=== PATIENT | female | born 1955 | race Caucasian/White ===

== ENCOUNTER 2016-10-04 14:04 | Emergency (ER) | payer MEDICAID ==
[2016-10-04 15:02] LABS: Hematocrit 44.6 % (30.3-42.9); Hemoglobin 14.7 gm/dl (10.1-14.3); Mean Corpuscular HGB Conc 33 % (30-34); Mean Corpuscular Hemoglobin 28 pg (28-32); Mean Corpuscular Volume 84 fl (79-97); Platelet Count 347 K/mm3 (140-440); Red Cell Distribution Width 13.5 % (13.2-15.2); White Blood Count 13.5 K/mm3 (4.5-11.0)
[2016-10-04 15:16] LABS: Alanine Aminotransferase 17 units/L (7-56); Albumin 4.1 g/dL (3.9-5); Albumin/Globulin Ratio 1.1 %; Alkaline Phosphatase 77 units/L (35-129); Anion Gap 18 mmol/L; Bilirubin,Total 0.5 mg/dL (0.1-1.2); Blood Urea Nitrogen 12 mg/dL (7-17); Calcium 8.9 mg/dL (8.4-10.2); Carbon Dioxide 23 mmol/L (22-30); Chloride 93.3 mmol/L (98-107); Glucose 333 mg/dL (65-100); Lipase 40 units/L (13-60); Potassium 4.3 mmol/L (3.6-5.0); Sodium 130 mmol/L (137-145); Total Protein 7.9 g/dL (6.3-8.2)
[2016-10-04 15:20] LABS: Bilirubin,Urine NEG (Negative); Blood,Urine SM (Negative); Ketones,Urine 20 mg/dL (Negative); Leukocyte Esterase,Urine NEG (Negative); Mucus,Urine FEW /HPF; Nitrite,Urine NEG (Negative); Protein,Urine <15 mg/dL mg/dL (Negative); Urobilinogen,Urine < 2.0 mg/dL (<2.0); WBC,Urine < 1.0 /HPF (0.0-6.0)
[2016-10-04 15:38] LABS: Basophils % (Manual) 0 % (0.0-1.8); Blastocytes % (Manual) 0 %; Eosinophils % (Manual) 0 % (0.0-4.3)
[2016-10-04 15:42] LABS: Anisocytosis 1+; Target Cells Few
[2016-10-04 15:43] LABS: Diff Status Complete
[2016-10-04] MEDS ORDERED: ZOFRAN IV ONE (17:09)
[2016-10-04] MEDS ORDERED: DILAUDID IV ONE (17:09)
[2016-10-04] MEDS ORDERED: NACL 0.9% 1000 ML 1,000 ML IV ONE (17:09)
[2016-10-04] MEDS ORDERED: PEPCID IV ONE (17:09)
--- NOTE | 2016-10-04 17:10 | Emergency Department Report ---
ED General Adult HPI - General Chief complaint: Abdominal Pain Stated complaint: HIGH BLOOD SUGAR Time Seen by Provider: 10/04/16 17:01 Source: patient, RN notes reviewed Mode of arrival: Stretcher Limitations: No Limitations - History of Present Illness Initial comments: This is a 60-year-old female, she is previously unknown to me. she cannot recall the name of her primary care doctor. She has a past medical history of chronic pancreatitis, diabetes, hypertension. Surgical history includes appendectomy, partial hysterectomy. Last diagnosis of pancreatitis 2 years ago. Presents to the ER complaining of abdominal pain. Abdominal pain is epigastric and radiates down to the bilateral lower quadrants and back. It is sharp. Increases with palpation. Decreases with rest. Positive nausea and vomiting. No chest pain. No shortness of breath. No irritative or obstructive urinary symptoms. Last flare of pancreatitis was 2 years ago, reports this feels similar to prior episode of pancreatitis. -: Gradual Location: abdomen Radiation: back, abdomen, flank Quality: burning, stabbing, aching Consistency: constant Improves with: medication, rest Worsens with: movement Associated Symptoms: loss of appetite, malaise, nausea/vomiting, weakness. denies: confusion, chest pain - Related Data Previous Rx's Medication Instructions Recorded Last Taken Type Dicyclomine [Bentyl] 10 mg PO QID PRN #20 capsule 10/04/16 Unknown Rx Ondansetron [Zofran Odt] 4 mg PO QID PRN #20 tab.rapdis 10/04/16 Unknown Rx Allergies Allergy/AdvReac Type Severity Reaction Status Date / Time No Known Allergies Allergy Unverified 10/04/16 14:18 ED Review of Systems ROS: Stated complaint: HIGH BLOOD SUGAR Other details as noted in HPI Constitutional: denies: fever Eyes: denies: vision change ENT: denies: epistaxis Cardiovascular: denies: chest pain Gastrointestinal: abdominal pain Genitourinary: denies: dysuria Musculoskeletal: back pain Skin: denies: lesions Neurological: weakness Psychiatric: anxiety ED Past Medical Hx - Past Medical History Hx Hypertension: Yes Hx Diabetes: Yes Additional medical history: pancreatitis - Surgical History Hx Appendectomy: Yes Additional Surgical History: hysterectomy,hep C - Social History Smoking Status: Current Every Day Smoker Substance Use Type: None - Medications Home Medications: Home Medications Medication Instructions Recorded Confirmed Last Taken Type Dicyclomine [Bentyl] 10 mg PO QID PRN #20 capsule 10/04/16 Unknown Rx Ondansetron [Zofran Odt] 4 mg PO QID PRN #20 tab.rapdis 10/04/16 Unknown Rx ED Physical Exam - General Limitations: No Limitations General appearance: alert, in no apparent distress - Head Head exam: Present: atraumatic, normocephalic - Eye Eye exam: Present: normal appearance, EOMI. Absent: nystagmus - ENT ENT exam: Present: normal exam, normal orophraynx, mucous membranes moist, normal external ear exam - Neck Neck exam: Present: normal inspection, full ROM. Absent: tenderness, meningismus - Respiratory Respiratory exam: Present: normal lung sounds bilaterally. Absent: respiratory distress, wheezes, rales, rhonchi, stridor, decreased breath sounds - Cardiovascular Cardiovascular Exam: Present: regular rate, normal rhythm, normal heart sounds. Absent: bradycardia, tachycardia, irregular rhythm, systolic murmur, diastolic murmur, rubs, gallop - GI/Abdominal GI/Abdominal exam: Present: soft, tenderness, normal bowel sounds. Absent: distended, guarding, rebound, rigid, pulsatile mass - Extremities Exam Extremities exam: Present: normal inspection, full ROM, normal capillary refill. Absent: tenderness, pedal edema, joint swelling, calf tenderness - Back Exam Back exam: Present: normal inspection, full ROM. Absent: tenderness, CVA tenderness (R), CVA tenderness (L), muscle spasm, paraspinal tenderness, vertebral tenderness - Neurological Exam Neurological exam: Present: alert, oriented X3, other (Extraocular movements intact. Tongue midline. No facial droop. Facial sensation intact to light touch in the V1, V2, V3 distribution bilaterally. 5 and 5 strength in 4 extremities.. Sensation is intact to light touch in 4 extremities.). Absent: motor sensory deficit - Psychiatric Psychiatric exam: Present: anxious - Skin Skin exam: Present: warm, dry, intact, normal color. Absent: rash ED Course Vital Signs 10/04/16 10/04/16 10/04/16 14:13 16:35 16:40 Temperature 98.3 F Pulse Rate 81 64 63 Respiratory 18 18 12 Rate Blood Pressure 153/81 Blood Pressure [Left] O2 Sat by Pulse 100 Oximetry 10/04/16 10/04/16 10/04/16 16:50 17:00 17:10 Temperature Pulse Rate 66 66 65 Respiratory 17 20 21 Rate Blood Pressure 153/77 156/75 156/75 Blood Pressure [Left] O2 Sat by Pulse Oximetry 10/04/16 10/04/16 10/04/16 17:20 17:30 17:40 Temperature Pulse Rate 67 65 68 Respiratory 19 14 10 L Rate Blood Pressure 150/72 130/72 130/72 Blood Pressure [Left] O2 Sat by Pulse Oximetry 10/04/16 10/04/16 10/04/16 17:50 18:00 18:10 Temperature Pulse Rate 70 64 70 Respiratory 11 L 11 L 16 Rate Blood Pressure 126/71 123/56 123/56 Blood Pressure [Left] O2 Sat by Pulse Oximetry 10/04/16 10/04/16 19:27 19:29 Temperature 97.9 F Pulse Rate 72 Respiratory 16 Rate Blood Pressure Blood Pressure 130/62 [Left] O2 Sat by Pulse 100 100 Oximetry - Reevaluation(s) Reevaluation #1: 10/04/16 18:06 Differential diagnosis: Acute on chronic pancreatitis, diabetic gastroparesis, cyclic vomiting syndrome, diverticulitis, bowel obstruction Assessment and plan: 60-year-old female with diffuse abdominal pain and tenderness. She is afebrile with reassuring vital signs with the exception of slightly elevated blood pressure. Laboratory studies not consistent with diabetic ketoacidosis, she will be treated symptomatically with pain medication , nausea medication and IV fluids. CT scan abdomen and pelvis with IV contrast is ordered. The risks, benefits, alternatives were discussed with the patient, who gave written and verbal consent for CT scan. She reports she has received CT scan in the past with IV contrast without complication difficulty. I doubt acute coronary syndrome, her EKG is morphologically normal without prior for comparison. If she is discharged, she can follow up with an outpatient primary care doctor for this. Reevaluation #2: 10/04/16 18:54 Fingerstick 252. Insulin held. feels improved. Tolerating liquid feeds Reevaluation #3: 10/04/16 19:16 CT scan demonstrates no acute disease. Incidental findings are noted. Patient is counseled about these incidental findings. She will be discharged with nonnarcotic pain medication, nausea medication, instructions to follow up with outpatient primary care. Return precautions are extensively reviewed. ED Medical Decision Making - Lab Data Result diagrams: 10/04/16 14:40 10/04/16 14:40 Vital Signs 10/04/16 10/04/16 14:13 16:35 Temperature 98.3 F Pulse Rate 81 64 Respiratory 18 18 Rate Blood Pressure 153/81 O2 Sat by Pulse 100 Oximetry Lab Results 10/04/16 10/04/16 10/04/16 Range/Units 14:13 14:40 14:40 WBC 13.5 H (4.5-11.0) K/mm3 RBC 5.30 H (3.65-5.03) M/mm3 Hgb 14.7 H (10.1-14.3) gm/dl Hct 44.6 H (30.3-42.9) % MCV 84 (79-97) fl MCH 28 (28-32) pg MCHC 33 (30-34) % RDW 13.5 (13.2-15.2) % Plt Count 347 (140-440) K/mm3 Lymph # Maintenance Electrician Add Manual Diff Complete Total Counted 100 Seg Neuts % (Manual) 53.0 (40.0-70.0) % Band Neutrophils % 0 % Lymphocytes % (Manual) 45.0 H (13.4-35.0) % Reactive Lymphs % (Man) 0 % Monocytes % (Manual) 2.0 (0.0-7.3) % Eosinophils % (Manual) 0 (0.0-4.3) % Basophils % (Manual) 0 (0.0-1.8) % Metamyelocytes % 0 % Myelocytes % 0 % Promyelocytes % 0 % Blast Cells % 0 % Nucleated RBC % Not Reportable Seg Neutrophils # Man 7.2 (1.8-7.7) K/mm3 Band Neutrophils # 0.0 K/mm3 Lymphocytes # (Manual) 6.1 H (1.2-5.4) K/mm3 Abs React Lymphs (Man) 0.0 K/mm3 Monocytes # (Manual) 0.3 (0.0-0.8) K/mm3 Eosinophils # (Manual) 0.0 (0.0-0.4) K/mm3 Basophils # (Manual) 0.0 (0.0-0.1) K/mm3 Metamyelocytes # 0.0 K/mm3 Myelocytes # 0.0 K/mm3 Promyelocytes # 0.0 K/mm3 Blast Cells # 0.0 K/mm3 WBC Morphology Not Reportable Hypersegmented Neuts Not Reportable Hyposegmented Neuts Not Reportable Hypogranular Neuts Not Reportable Smudge Cells Not Reportable Toxic Granulation Not Reportable Toxic Vacuolation Not Reportable Dohle Bodies Not Reportable Pelger-Huet Anomaly Not Reportable Symone Rods Not Reportable Platelet Estimate Appears normal Clumped Platelets Not Reportable Plt Clumps, EDTA Not Reportable Large Platelets Not Reportable Giant Platelets Not Reportable Platelet Satelliting Not Reportable Plt Morphology Comment Not Reportable RBC Morphology Not Reportable Dimorphic RBCs Not Reportable Polychromasia Not Reportable Hypochromasia Not Reportable Poikilocytosis Not Reportable Anisocytosis 1+ Microcytosis Not Reportable Macrocytosis Not Reportable Spherocytes Not Reportable Pappenheimer Bodies Not Reportable Sickle Cells Not Reportable Target Cells Few Tear Drop Cells Not Reportable Ovalocytes Not Reportable Helmet Cells Not Reportable Eduardo-[place] Bodies Not Reportable Hurricane Rings Not Reportable [place] Cells Not Reportable Bite Cells Not Reportable Crenated Cell Not Reportable Elliptocytes Not Reportable Acanthocytes (Spur) Not Reportable Rouleaux Not Reportable Hemoglobin C Crystals Not Reportable Schistocytes Not Reportable Malaria parasites Not Reportable Dinesh Bodies Not Reportable Hem Pathologist Commnt No VBG pH (7.320-7.420) Sodium 130 L (137-145) mmol/L Potassium 4.3 (3.6-5.0) mmol/L Chloride 93.3 L (98-107) mmol/L Carbon Dioxide 23 (22-30) mmol/L Anion Gap 18 mmol/L BUN 12 (7-17) mg/dL Creatinine 0.5 L (0.7-1.2) mg/dL Estimated GFR > 60 ml/min BUN/Creatinine Ratio 24.00 % Glucose 333 H (65-100) mg/dL POC Glucose 308 H (70-105) Lactic Acid (0.7-2.0) mmol/L Calcium 8.9 (8.4-10.2) mg/dL Total Bilirubin 0.5 (0.1-1.2) mg/dL AST 11 (5-40) units/L ALT 17 (7-56) units/L Alkaline Phosphatase 77 (35-129) units/L Total Protein 7.9 (6.3-8.2) g/dL Albumin 4.1 (3.9-5) g/dL Albumin/Globulin Ratio 1.1 % Lipase 40 (13-60) units/L Urine Color (Yellow) Urine Turbidity (Clear) Urine pH (5.0-7.0) Ur Specific [place] (1.003-1.030) Urine Protein (Negative) mg/dL Urine Glucose (UA) (Negative) mg/dL Urine Ketones (Negative) mg/dL Urine Blood (Negative) Urine Nitrite (Negative) Urine Bilirubin (Negative) Urine Urobilinogen (<2.0) mg/dL Ur Leukocyte Esterase (Negative) Urine WBC (Auto) (0.0-6.0) /HPF Urine RBC (Auto) (0.0-6.0) /HPF U Epithel Cells (Auto) (0-13.0) /HPF Urine Mucus /HPF 10/04/16 10/04/16 10/04/16 Range/Units 14:40 14:40 15:06 WBC (4.5-11.0) K/mm3 RBC (3.65-5.03) M/mm3 Hgb (10.1-14.3) gm/dl Hct (30.3-42.9) % MCV (79-97) fl MCH (28-32) pg MCHC (30-34) % RDW (13.2-15.2) % Plt Count (140-440) K/mm3 Lymph # Add Manual Diff Total Counted Seg Neuts % (Manual) (40.0-70.0) % Band Neutrophils % % Lymphocytes % (Manual) (13.4-35.0) % Reactive Lymphs % (Man) % Monocytes % (Manual) (0.0-7.3) % Eosinophils % (Manual) (0.0-4.3) % Basophils % (Manual) (0.0-1.8) % Metamyelocytes % % Myelocytes % % Promyelocytes % % Blast Cells % % Nucleated RBC % Seg Neutrophils # Man (1.8-7.7) K/mm3 Band Neutrophils # K/mm3 Lymphocytes # (Manual) (1.2-5.4) K/mm3 Abs React Lymphs (Man) K/mm3 Monocytes # (Manual) (0.0-0.8) K/mm3 Eosinophils # (Manual) (0.0-0.4) K/mm3 Basophils # (Manual) (0.0-0.1) K/mm3 Metamyelocytes # K/mm3 Myelocytes # K/mm3 Promyelocytes # K/mm3 Blast Cells # K/mm3 WBC Morphology Hypersegmented Neuts Hyposegmented Neuts Hypogranular Neuts Smudge Cells Toxic Granulation Toxic Vacuolation Dohle Bodies Pelger-Huet Anomaly Symone Rods Platelet Estimate Clumped Platelets Plt Clumps, EDTA Large Platelets Giant Platelets Platelet Satelliting Plt Morphology Comment RBC Morphology Dimorphic RBCs Polychromasia Hypochromasia Poikilocytosis Anisocytosis Microcytosis Macrocytosis Spherocytes Pappenheimer Bodies Sickle Cells Target Cells Tear Drop Cells Ovalocytes Helmet Cells Eduardo-[place] Bodies Hurricane Rings Deja Cells Bite Cells Crenated Cell Elliptocytes Acanthocytes (Spur) Rouleaux Hemoglobin C Crystals Schistocytes Malaria parasites Dinesh Bodies Hem Pathologist Commnt VBG pH 7.378 (7.320-7.420) Sodium (137-145) mmol/L Potassium (3.6-5.0) mmol/L Chloride (98-107) mmol/L Carbon Dioxide (22-30) mmol/L Anion Gap mmol/L BUN (7-17) mg/dL Creatinine (0.7-1.2) mg/dL Estimated GFR ml/min BUN/Creatinine Ratio % Glucose (65-100) mg/dL POC Glucose (70-105) Lactic Acid 1.4 (0.7-2.0) mmol/L Calcium (8.4-10.2) mg/dL Total Bilirubin (0.1-1.2) mg/dL AST (5-40) units/L ALT (7-56) units/L Alkaline Phosphatase (35-129) units/L Total Protein (6.3-8.2) g/dL Albumin (3.9-5) g/dL Albumin/Globulin Ratio % Lipase (13-60) units/L Urine Color Straw (Yellow) Urine Turbidity Clear (Clear) Urine pH 5.0 (5.0-7.0) Ur Specific [place] 1.026 (1.003-1.030) Urine Protein <15 mg/dl (Negative) mg/dL Urine Glucose (UA) >=500 (Negative) mg/dL Urine Ketones 20 (Negative) mg/dL Urine Blood Sm (Negative) Urine Nitrite Neg (Negative) Urine Bilirubin Neg (Negative) Urine Urobilinogen < 2.0 (<2.0) mg/dL Ur Leukocyte Esterase Neg (Negative) Urine WBC (Auto) < 1.0 (0.0-6.0) /HPF Urine RBC (Auto) 3.0 (0.0-6.0) /HPF U Epithel Cells (Auto) < 1.0 (0-13.0) /HPF Urine Mucus Few /HPF - EKG Data -: EKG Interpreted by Me EKG shows normal: sinus rhythm - EKG Data When compared to previous EKG there are: previous EKG unavailable 10/04/16 18:08 Normal sinus, 75 bpm, left axis deviation, poor R-wave progression, QTC 466 ms, not morphologically consistent with STEMI, there is no prior. - Radiology Data Radiology results: report reviewed, image reviewed Noncontrast CAT scan of the abdomen and pelvis demonstrates no acute disease. Bilateral enhancing adrenal nodules or hyperplasia, not fully characterized. There is a small low density lesion noted in the right infrahilar region, may be a pericardial cyst. Constipation suggested. Pancreas appears to be within normal limits. Critical care attestation.: If time is entered above; I have spent that time in minutes in the direct care of this critically ill patient, excluding procedure time. ED Disposition Clinical Impression: Abdominal pain Disposition: DISCHARGED TO HOME OR SELFCARE Is pt being admited?: No Does the pt Need Aspirin: No Condition: Stable Instructions: Abdominal Pain (ED) Additional Instructions: Do not take metformin for the next [address] scan demonstrated evidence of constipation. Drink 6-8 cups of water a day. Eat plenty of fruits, fibers, vegetables. Incidental findings were noted around the bilateral adrenal glands, and in the right infrahilar region of the lung, possible pericardial cyst. These should be followed up by a primary care doctor within the next month. Not following up with a primary care doctor for these incidental findings may result in an undiagnosed tumor/cancer/malignancy. Return to the ER right away with new pain, worsened pain, migration of pain, fevers or chills, intractable nausea or vomiting, inability to tolerate liquid feeds. EKG demonstrated nonspecific abnormalities. Follow up with a primary care doctor or cafeteria supervisor within the next week for your abnormal EKG. Dr. Wilson is a local primary care doctor. Follow-up with the primary care doctor within the next week. Dr. Hamm is a local human resources department supervisor. Dr. Rosario is a local talent sourcing specialist. Prescriptions: Dicyclomine [Bentyl] 10 mg PO QID PRN #20 capsule PRN Reason: Pain Ondansetron [Zofran Odt] 4 mg PO QID PRN #20 tab.rapdis PRN Reason: Nausea Referrals: PRIMARY CARE, [Primary Care Provider] - 3-5 Days DEV WILSON MD [Staff Physician] - 3-5 Days SIMIN HAMM MD [Staff Physician] - 3-5 Days VERA ROSARIO MD [Staff Physician] - 3-5 Days
[2016-10-04] MEDS ORDERED: NACL ONE (18:15)
--- NOTE | 2016-10-04 19:06 | Cat Scan Report ---
FINAL REPORT PROCEDURE: CT ABDOMEN PELVIS W CON TECHNIQUE: Computerized axial tomography of the abdomen and pelvis was performed after the IV injection of iodinated nonionic contrast. HISTORY: Abdominal pain COMPARISON: No prior studies are available for comparison. FINDINGS: Visualized lower thorax: There is a rounded circumscribed low-density lesion seen in the right infrahilar region, measuring up to 9 millimeters, which may be a pericardial cyst. This is not fully imaged. Liver: Normal size and attenuation. Spleen: Normal size and attenuation. Gallbladder and biliary system: Normal. Pancreas: Normal. Adrenals: Bilateral enhancing adrenal nodules or hyperplasia, not fully characterized Kidneys: Bilateral circumscribed rounded low densities in the kidneys are likely related to cysts. No hydronephrosis bilaterally. GI tract: Moderate volume of stool throughout the colon suggests constipation. The appendix is not diagnostically visualized or evaluated. However no acute inflammation or bowel obstruction is noted. Lymph nodes and mesentery: Normal. Vasculature: Normal. Bladder: Normal. Reproductive organs: Uterus is not visualized. Peritoneum: No free fluid. Musculoskeletal structures: Degenerative disc changes predominantly at L4-5.. Other: Small fat containing anterior abdominal wall hernia. IMPRESSION: Bilateral adrenal nodular hyperplasia is not fully characterized. Bilateral renal cysts. The appendix is not diagnostically visualized/evaluated. However no inflammatory changes or evidence of bowel obstruction are noted.
[2016-10-04 19:28] VITALS: BP 130/62
== END 2016-10-04 19:59 | disposition home or self-care (01) ==
LOC: ED 14:04
DX: R10.13 Epigastric pain (principal); R11.2 Nausea with vomiting, unspecified; R53.81 Other malaise; I10 Essential (primary) hypertension; E11.9 Type 2 diabetes mellitus without complications; F17.200 Nicotine dependence, unspecified, uncomplicated
CPT/HCPCS: 36415; 74177; 80053; 81001; 82140; 82805; 82962; 83690; 85007; 85025; 93005; 93010; 96361; 96374; 96375; 99284; J1170; J2405; J7030; Q9967; J1815

== ENCOUNTER 2016-10-18 20:56 | Emergency (ER) | payer MEDICAID ==
[2016-10-18 21:42] LABS: Hematocrit 43.6 % (30.3-42.9); Hemoglobin 14.7 gm/dl (10.1-14.3); Mean Corpuscular HGB Conc 34 % (30-34); Mean Corpuscular Hemoglobin 28 pg (28-32); Mean Corpuscular Volume 83 fl (79-97); Platelet Count 397 K/mm3 (140-440); Red Blood Count 5.26 M/mm3 (3.65-5.03); Red Cell Distribution Width 13.4 % (13.2-15.2); White Blood Count 16.1 K/mm3 (4.5-11.0)
[2016-10-18 22:01] LABS: Alanine Aminotransferase 22 units/L (7-56); Albumin 4.5 g/dL (3.9-5); Albumin/Globulin Ratio 1.1 %; Alkaline Phosphatase 75 units/L (35-129); Anion Gap 18 mmol/L; Bilirubin,Total 0.3 mg/dL (0.1-1.2); Blood Urea Nitrogen 12 mg/dL (7-17); Calcium 9.8 mg/dL (8.4-10.2); Carbon Dioxide 22 mmol/L (22-30); Chloride 97.4 mmol/L (98-107); Glucose 216 mg/dL (65-100); Lipase 62 units/L (13-60); Potassium 3.5 mmol/L (3.6-5.0); Sodium 134 mmol/L (137-145); Total Protein 8.5 g/dL (6.3-8.2)
[2016-10-18 22:43] LABS: Basophils % (Manual) 0 % (0.0-1.8); Blastocytes % (Manual) 0 %; Eosinophils % (Manual) 0 % (0.0-4.3)
[2016-10-18 22:44] LABS: Anisocytosis 1+; Diff Status Complete
[2016-10-19] MEDS ORDERED: NACL 0.9% 1000 ML 1,000 ML IV ONE (02:02)
[2016-10-19] MEDS ORDERED: MORPHINE IV ONE ×2 (02:02→04:11)
--- NOTE | 2016-10-19 02:07 | Emergency Department Report ---
HPI - General Chief Complaint: Abdominal Pain Time Seen by Provider: 10/19/16 01:43 - HPI HPI: This is a 60-year-old Afro-[place]ish female presents the emergency department by EMS from home with complaint of upper abdominal pain that has been going on intermittently over the past month but has worsened over the past few days. It is associated with some nausea without vomiting. She has a history of pancreatitis and believes that is what she is having an exacerbation of. She also has a history of insulin-dependent diabetes, hypertension, hepatitis C. She has a past surgical history of appendectomy. The patient was here on October 04 with similar symptoms and had a CT scan of the abdomen at that point that did not show any acute process. She was discharged home to follow-up with her primary care doctor and GI but she did not see either of these. No recent travel or sick contacts at home. ED Past Medical Hx - Past Medical History Previous Medical History?: Yes Hx Hypertension: Yes Hx Diabetes: Yes Additional medical history: pancreatitis - Surgical History Past Surgical History?: Yes Hx Appendectomy: Yes Additional Surgical History: hysterectomy,hep C - Social History Smoking Status: Current Every Day Smoker Substance Use Type: None - Medications Home Medications: Home Medications Medication Instructions Recorded Confirmed Last Taken Type Dicyclomine [Bentyl] 10 mg PO QID PRN #20 capsule 10/04/16 Unknown Rx Ondansetron [Zofran Odt] 4 mg PO QID PRN #20 tab.rapdis 10/04/16 Unknown Rx HYDROcodone/APAP 5-325 [[place] 1 each PO Q6HR PRN #8 tablet 10/19/16 Unknown Rx 5/325] ED Review of Systems ROS: Stated complaint: ABD PAIN Other details as noted in HPI Comment: All other systems reviewed and negative Constitutional: denies: chills, fever Eyes: denies: eye pain, eye discharge, vision change ENT: denies: ear pain, throat pain Respiratory: denies: cough, shortness of breath, wheezing Cardiovascular: denies: chest pain, palpitations Gastrointestinal: abdominal pain, nausea Genitourinary: denies: urgency, dysuria, discharge Musculoskeletal: denies: back pain, joint swelling, arthralgia Skin: denies: rash, lesions Neurological: denies: headache, weakness, paresthesias Physical Exam - Physical Exam Vital Signs: Vital Signs 10/18/16 10/19/16 20:58 01:40 Temperature 98.9 F Pulse Rate 101 H Respiratory 20 18 Rate Blood Pressure 144/86 [Right] O2 Sat by Pulse 98 100 Oximetry Physical Exam: GENERAL: The patient is well-developed well-nourished. HEENT: Normocephalic. Atraumatic. Extraocular motions are intact. Patient has moist mucous membranes. Pupils equal reactive to light bilaterally. NECK: Supple. Trachea is midline. CHEST/LUNGS: Clear to auscultation. There is no respiratory distress noted. HEART/CARDIOVASCULAR: Regular. There is no tachycardia. There is no gallop rub or murmur. ABDOMEN: Abdomen is soft. Patient has tenderness to palpation to the upper quadrants of the abdomen. No guarding or rebound tenderness. No peritoneal signs to heel strike. Patient has normal bowel sounds. There is no abdominal distention. SKIN: Skin is warm and dry. NEURO: The patient is awake, alert, and oriented. The patient is cooperative. The patient has no focal neurologic deficits. The patient has normal speech. MUSCULOSKELETAL: There is no tenderness or deformity. There is no limitation range of motion. There is no evidence of acute injury. ED Course Vital Signs 10/18/16 10/19/16 20:58 01:40 Temperature 98.9 F Pulse Rate 101 H Respiratory 20 18 Rate Blood Pressure 144/86 [Right] O2 Sat by Pulse 98 100 Oximetry ED Medical Decision Making - Lab Data Result diagrams: 10/18/16 21:25 10/18/16 21:25 - Radiology Data Radiology results: report reviewed Abdominal ultrasound shows distention of the gallbladder but there are no gallstones. There is no cholecystitis or biliary ductal dilatation. There are bilateral kidney cysts. Abdominal x-ray does not show any acute process including no signs of obstruction. - Medical Decision Making 60-year-old female presents to the emergency department with continued abdominal discomfort, very similar to the visit she had 2 weeks ago here. Patient's vital signs are stable throughout her ED course including being afebrile. Patient's labs do show a leukocytosis of 16,000 but there is no bandemia or left shift. Patient had a elevated white count last time as well. Patient has some hyperglycemia with a blood sugar just over 200. There is low suspicion for DKA or HHNK. No elevated anion gap. Patient has slight elevation of her lipase at 60. The rest the labs are unremarkable including no signs of urinary tract infection. Patient was given some IV fluid and solid for pain. She had an abdominal ultrasound that showed some mild gallbladder distention but no stones, no wall thickening, no cystitis and no biliary ductal dilatated dilation. Pancreas was not seen as it was obscured by bowel gas. Abdominal x-ray did not show any signs of obstruction or any acute process. It is possible the patient has some level of a pancreatitis but the lipase is not very elevated and the patient had the same complaints when she had a CT of the abdomen and pelvis 2 weeks ago that did not show any signs of pancreatitis at that time. The patient is feeling improved and appears safe for discharge home at this time. She will once again be given a referral for gastroenterology and encouraged to follow up with primary care. She is to return to the emergency department with any intractable nausea and vomiting, intractable fever, worsening of her abdominal discomfort or any acute distress. - Differential Diagnosis pancreatitis, gastritis, colitis, diverticulitis, food poisoning Critical Care Time: No Critical care attestation.: If time is entered above; I have spent that time in minutes in the direct care of this critically ill patient, excluding procedure time. ED Disposition Clinical Impression: History of pancreatitis Abdominal pain Qualifiers: Abdominal location: upper abdomen, unspecified Qualified Code(s): R10.10 - Upper abdominal pain, unspecified Disposition: DISCHARGED TO HOME OR SELFCARE Is pt being admited?: No Condition: Stable Instructions: Abdominal Pain (ED) Additional Instructions: Please follow-up with your primary care doctor the next few days. I give you a referral for a local felt hat mellowing machine operator, Dr Hamm, for you to follow-up regarding your chronic abdominal pains. Return to the emergency department with any worsening of your discomfort, intractable fever or vomiting, or any acute distress. You've been prescribed a medication that is sedating. Therefore this medication cannot be mixed with alcohol, or taken prior to driving, working, or being responsible for children. Prescriptions: HYDROcodone/APAP 5-325 [[place] 5/325] 1 each PO Q6HR PRN #8 tablet PRN Reason: Pain Referrals: PRIMARY CARE, [Primary Care Provider] - 3-5 Days SIMIN HAMM MD [Staff Physician] - 3-5 Days Time of Disposition: 05:29
--- NOTE | 2016-10-19 03:54 | Ultrasound Report ---
FINAL REPORT PROCEDURE: US ABDOMEN COMPLETE TECHNIQUE: Real-time sonography in multiple planes of the gallbladder fossa and CBD with imaging of the adjacent liver, pancreas, and right kidney was performed with image documentation. CPT 89358 HISTORY: abd pain COMPARISON: No prior studies are available for comparison. FINDINGS: Liver: Normal size and echotexture with no evidence of cystic or solid mass lesion. Gallbladder: The gallbladder is distended. There are no stones. There is no wall thickening or pericholecystic fluid.. Intrahepatic bile ducts: Normal . Extrahepatic bile ducts: Normal . Pancreas: Obscured by bowel gas.. Right kidney: There are cysts measuring up to 16 millimeters.. Other: There are left kidney cysts measuring up to 13 millimeters. There is no free fluid.. IMPRESSION: Gallbladder is distended. There are no gallstones. There is no cholecystitis or biliary ductal dilatation. There are bilateral kidney cysts.
[2016-10-19 04:35] LABS: Bilirubin,Urine NEG (Negative); Blood,Urine SM (Negative); Ketones,Urine NEG (Negative); Leukocyte Esterase,Urine NEG (Negative); Mucus,Urine FEW /HPF; Nitrite,Urine NEG (Negative); Protein,Urine <15 mg/dL mg/dL (Negative); Urobilinogen,Urine < 2.0 mg/dL (<2.0)
[2016-10-19 04:48] VITALS: BP 119/72
--- NOTE | 2016-10-19 05:15 | XRay Report ---
FINAL REPORT PROCEDURE: XR ABDOMEN 2V TECHNIQUE: Laterality ankle radiographs, AP and lateral views. CPT 06032 HISTORY: abd pain COMPARISON: No prior studies are available for comparison. FINDINGS: Fracture (s) and/or Dislocation(s): None . Alignment: Normal . Joint space(s): Normal . Soft tissues: Normal . Bone mineralization: Normal . Foreign bodies: None . Calcaneal spurring: None . IMPRESSION: Normal Examination .
== END 2016-10-19 05:36 | disposition home or self-care (01) ==
LOC: ED 20:56
DX: R10.10 Upper abdominal pain, unspecified (principal); I10 Essential (primary) hypertension; E10.9 Type 1 diabetes mellitus without complications; F17.200 Nicotine dependence, unspecified, uncomplicated
CPT/HCPCS: 36415; 74020; 76700; 80053; 81001; 83690; 85007; 85025; 96361; 96374; 96376; 99285; J2270; J7030

== ENCOUNTER 2017-04-11 17:19 | Emergency (ER) | payer MEDICAID ==
--- NOTE | 2017-04-11 17:51 | Emergency Department Report ---
Chief Complaint: Headache Stated Complaint: WATERS/BLURRED AND DOUBLE VISION Time Seen by Provider: 04/11/17 17:48 - HPI History of Present Illness: headache x 2 weeks blurred vision PT states she started having headaches after unit below her was vacant and smelled foul - ROS Review of Systems: pt states she is always thirsty because she is a Diabetic. pt states her bg usually stays around 180 + blurred vision - Exam Vital Signs: Vital Signs 04/11/17 17:44 Temperature 98.8 F Pulse Rate 78 Respiratory 18 Rate Blood Pressure 154/71 O2 Sat by Pulse 97 Oximetry Physical Exam: pt alert and appropriate normal finger to nose gcs 15 MSE screening note: Focused history and physical exam performed. Due to findings the following was ordered: labs, ct ED Disposition for MSE Condition: Stable
[2017-04-11 20:17] LABS: Hematocrit 41.4 % (30.3-42.9); Hemoglobin 13.8 gm/dl (10.1-14.3); Mean Corpuscular HGB Conc 33 % (30-34); Mean Corpuscular Hemoglobin 29 pg (28-32); Mean Corpuscular Volume 87 fl (79-97); Platelet Count 339 K/mm3 (140-440); Red Blood Count 4.77 M/mm3 (3.65-5.03); Red Cell Distribution Width 13.1 % (13.2-15.2); White Blood Count 14.3 K/mm3 (4.5-11.0)
[2017-04-11 20:29] LABS: Anion Gap 17 mmol/L; Blood Urea Nitrogen 13 mg/dL (7-17); Calcium 9.7 mg/dL (8.4-10.2); Carbon Dioxide 27 mmol/L (22-30); Chloride 97.6 mmol/L (98-107); Glucose 100 mg/dL (65-100); Potassium 4.2 mmol/L (3.6-5.0); Sodium 137 mmol/L (137-145)
[2017-04-11 21:04] LABS: Basophils % (Manual) 0 % (0.0-1.8); Blastocytes % (Manual) 0 %
[2017-04-11 21:05] LABS: Anisocytosis 1+; Diff Status Complete; Platelet Estimate Consistent w Auto
--- NOTE | 2017-04-11 22:37 | Cat Scan Report ---
FINAL REPORT PROCEDURE: CT HEAD/BRAIN WO CON TECHNIQUE: Computerized tomography of the head was performed without contrast material. HISTORY: headache x 2 weeks, blurred vision COMPARISON: No prior studies are available for comparison. FINDINGS: Skull and scalp: Normal. Paranasal sinuses: Normal. Ventricles and subarachnoid spaces: There is mild age-appropriate central and cortical atrophy.. Cerebrum: No evidence of hemorrhage, acute infarction or mass. There is mild chronic deep white matter ischemic gliosis. There are physiologic calcifications in the basal ganglia and incidental ossification of the interhemispheric falx. Cerebellum and brainstem: No evidence of hemorrhage, acute infarction or mass. Vasculature: Normal. Comments: None. IMPRESSION: No acute intracranial abnormality is identified.
[2017-04-12] MEDS ORDERED: PERCOCET 5/325 PO ONE (01:03)
--- NOTE | 2017-04-12 01:06 | Emergency Department Report ---
HPI - General Chief Complaint: Headache Time Seen by Provider: 04/11/17 17:48 - HPI HPI: This is a 61 year-old female who presents to the emergency department from home, dropped off by a friend, with a complaint of a two-week history of some blurry and/or double vision, and a one-week history of an intermittent headache. Patient also says that she has been having some hair loss. She saw her primary care physician, Dr. Quiroz, and says that she was just placed on some ibuprofen which did not help her symptoms. She has a history of insulin-dependent diabetes and hypertension. She has as history of depression for which she takes Prozac. She is a tobacco smoker but denies any illicit drug use or abuse. She does drink a large amount of coffee and her caffeinated drinks. She does not have a associate professor of education but has an appointment to see one on the . No recent travel or sick contacts at home. She denies any slurred speech, sensory or motor deficits or any other neurological deficits. ED Past Medical Hx - Past Medical History Hx Hypertension: Yes Hx Diabetes: Yes Additional medical history: pancreatitis - Surgical History Hx Appendectomy: Yes Additional Surgical History: hysterectomy,hep C - Social History Smoking Status: Current Every Day Smoker Substance Use Type: None - Medications Home Medications: Home Medications Medication Instructions Recorded Confirmed Last Taken Type Dicyclomine [Bentyl] 10 mg PO QID PRN #20 capsule 10/04/16 Unknown Rx Ondansetron [Zofran Odt] 4 mg PO QID PRN #20 tab.rapdis 10/04/16 Unknown Rx HYDROcodone/APAP 5-325 [[place] 1 each PO Q6HR PRN #8 tablet 10/19/16 Unknown Rx 5/325] ED Review of Systems ROS: Stated complaint: WATERS/BLURRED AND DOUBLE VISION Other details as noted in HPI Comment: All other systems reviewed and negative Constitutional: denies: chills, fever Eyes: vision change. denies: eye pain ENT: denies: ear pain, throat pain Respiratory: denies: cough, shortness of breath, wheezing Cardiovascular: denies: chest pain, palpitations Gastrointestinal: denies: abdominal pain, nausea, diarrhea Genitourinary: denies: urgency, dysuria, discharge Musculoskeletal: denies: back pain, joint swelling, arthralgia Skin: denies: rash, lesions Neurological: headache. denies: weakness, numbness, paresthesias, confusion Physical Exam - Physical Exam Vital Signs: Vital Signs 04/11/17 04/11/17 04/12/17 17:44 23:31 00:36 Temperature 98.8 F 98.4 F Pulse Rate 78 72 72 Respiratory 18 18 17 Rate Blood Pressure 154/71 182/87 Blood Pressure 191/91 [Right] O2 Sat by Pulse 97 97 97 Oximetry Physical Exam: GENERAL: The patient is well-developed well-nourished. HENT: Normocephalic. Atraumatic. Patient has moist mucous membranes. EYES: Extraocular motions are intact. Pupils equal reactive to light bilaterally. No nystagmus. NECK: Supple. Trachea is midline. CHEST/LUNGS: Clear to auscultation. There is no respiratory distress noted. HEART/CARDIOVASCULAR: Regular. There is no tachycardia. There is no gallop rub or murmur. ABDOMEN: Abdomen is soft, nontender. Patient has normal bowel sounds. There is no abdominal distention. SKIN: Skin is warm and dry. NEURO: The patient is awake, alert, and oriented. The patient is cooperative. The patient has no focal neurologic deficits. The patient has normal speech and gait. Cranial nerves II through XII grossly intact. No dysmetria. No pronator drift. MUSCULOSKELETAL: There is no tenderness or deformity. There is no limitation range of motion. There is no evidence of acute injury. ED Course Vital Signs 04/11/17 04/11/17 04/12/17 17:44 23:31 00:36 Temperature 98.8 F 98.4 F Pulse Rate 78 72 72 Respiratory 18 18 17 Rate Blood Pressure 154/71 182/87 Blood Pressure 191/91 [Right] O2 Sat by Pulse 97 97 97 Oximetry ED Medical Decision Making - Lab Data Result diagrams: 04/11/17 20:01 04/11/17 20:01 - Radiology Data Radiology results: report reviewed PROCEDURE: CT HEAD/BRAIN WO CON TECHNIQUE: Computerized tomography of the head was performed without contrast material. HISTORY: headache x 2 weeks, blurred vision COMPARISON: No prior studies are available for comparison. FINDINGS: Skull and scalp: Normal. Paranasal sinuses: Normal. Ventricles and subarachnoid spaces: There is mild age-appropriate central and cortical atrophy.. Cerebrum: No evidence of hemorrhage, acute infarction or mass. There is mild chronic deep white matter ischemic gliosis. There are physiologic calcifications in the basal ganglia and incidental ossification of the interhemispheric falx. Cerebellum and brainstem: No evidence of hemorrhage, acute infarction or mass. Vasculature: Normal. Comments: None. IMPRESSION: No acute intracranial abnormality is identified. - Medical Decision Making The patient presents with a 2 week history of some intermittent blurry vision and/or double vision and a one-week history of some intermittent headache. She does not appear to have any focal, motor or sensory deficits at this time and her cranial nerves are intact. A CT of the head without contrast was done that did not show any bleed, shift, mass or any acute process. Labs are unremarkable and do not show any etiology of her symptoms. She did have some elevated blood pressure but came down to a more reasonable level without any intervention. She was given a single pain pill and her headache has almost completely resolved. She had he has an appointment with ophthalmology on the but she has been told to try and move it up. She has been encouraged to follow up with her primary care physician and was also given a referral for a neurologist regarding her headaches as this all may be a complex migraine or something of that nature. She will return to the ER with any worsening of her symptoms or any acute distress. - Differential Diagnosis migraine, tension headache, glaucoma Critical Care Time: No Critical care attestation.: If time is entered above; I have spent that time in minutes in the direct care of this critically ill patient, excluding procedure time. ED Disposition Clinical Impression: Blurred vision Hypertension Qualifiers: Hypertension type: essential hypertension Qualified Code(s): I10 - Essential ( primary) hypertension Headache Qualifiers: Headache type: unspecified Headache chronicity pattern: episodic headache Intractability: not intractable Qualified Code(s): R51 - Headache Disposition: DC-01 TO HOME OR SELFCARE Is pt being admited?: No Condition: Stable Instructions: Acute Headache (ED), Hypertension (ED), Blurred Vision (ED) Additional Instructions: Please follow-up with your primary care physician in the next few days. Follow- up with the associate professor of education as previously planned but see if you can move up the date. I have given you a referral for a local neurologist, Dr. Bloom, in case you need to follow-up with someone regarding her headaches. Try and quit smoking. Stay away from foods that are high in salt and caffeinated products to help with your blood pressure. Keep a blood pressure log. Referrals: VIVIENNE BLOOM MD [Staff Physician] - 3-5 Days PRIMARY CAREMD [Primary Care Provider] - [facility] Time of Disposition: 02:22
[2017-04-12 03:30] VITALS: BP 158/85
== END 2017-04-12 03:35 | disposition home or self-care (01) ==
LOC: ED 17:19
DX: R51 Headache (principal); I10 Essential (primary) hypertension; H53.8 Other visual disturbances; E11.9 Type 2 diabetes mellitus without complications; K85.90 Acute pancreatitis without necrosis or infection, unspecified; F17.200 Nicotine dependence, unspecified, uncomplicated
CPT/HCPCS: 36415; 70450; 80048; 84443; 85007; 85025

== ENCOUNTER 2017-08-22 10:35 | Emergency (ER) | payer MEDICAID ==
[2017-08-22 11:38] LABS: Hematocrit 43.2 % (30.3-42.9); Hemoglobin 15.3 gm/dl (10.1-14.3); Mean Corpuscular HGB Conc 36 % (30-34); Mean Corpuscular Hemoglobin 30 pg (28-32); Mean Corpuscular Volume 85 fl (79-97); Platelet Count 363 K/mm3 (140-440); Red Blood Count 5.07 M/mm3 (3.65-5.03)
[2017-08-22 11:52] LABS: Alanine Aminotransferase 19 units/L (7-56); Albumin 4.5 g/dL (3.9-5); BUN/Creatinine Ratio 18; Blood Urea Nitrogen 9 mg/dL (7-17); Calcium 9.4 mg/dL (8.4-10.2); Hemolysis Index 26; Lipase 28 units/L (13-60)
[2017-08-22 13:29] LABS: Bilirubin,Urine NEG (Negative); Blood,Urine MOD (Negative); Color,Urine Yellow (Yellow); Nitrite,Urine NEG (Negative); Urobilinogen,Urine < 2.0 mg/dL (<2.0); WBC,Urine < 1.0 /HPF (0.0-6.0)
[2017-08-22 13:43] LABS: Basophils % (Manual) 0 % (0.0-1.8); Eosinophils % (Manual) 0 % (0.0-4.3); Total Cells Counted 100
[2017-08-22 13:44] LABS: Anisocytosis 1+
[2017-08-22] MEDS ORDERED: TYLENOL PO ONE (22:03)
[2017-08-23] MEDS ORDERED: NORCO 5/325 PO ONE (00:01)
--- NOTE | 2017-08-23 00:02 | Emergency Department Report ---
HPI - General Chief Complaint: Abdominal Pain Time Seen by Provider: 08/22/17 22:44 - HPI HPI: 61-year-old female presents to the emergency department with a complaint of a 2-3 day history of some upper abdominal discomfort, nausea and vomiting. Patient says that she has a history of chronic pancreatitis secondary to some previous history of alcohol abuse. However the patient says that she has not been drinking recently and all of a sudden this just "popped up." She doesn't a history of diabetes, hypertension and previously had hepatitis C. She has a surgical history of appendectomy and hysterectomy. She has not taken anything for her symptoms prior to presentation. 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 No recent travel or sick contacts at home. She denies any fever, dysuria, vaginal bleeding or discharge, chest pain, cough or shortness of breath. ED Past Medical Hx - Past Medical History Previous Medical History?: Yes Hx Hypertension: Yes Hx Diabetes: Yes Additional medical history: pancreatitis - Surgical History Past Surgical History?: Yes Hx Appendectomy: Yes Additional Surgical History: hysterectomy,hep C - Social History Smoking Status: Current Every Day Smoker Substance Use Type: Alcohol, Prescribed - Medications Home Medications: Home Medications Medication Instructions Recorded Confirmed Last Taken Type Dicyclomine [Bentyl] 10 mg PO QID PRN #20 capsule 10/04/16 Unknown Rx Ondansetron [Zofran Odt] 4 mg PO QID PRN #20 tab.rapdis 10/04/16 Unknown Rx HYDROcodone/APAP 5-325 [Stapleton 1 each PO Q6HR PRN #10 tablet 08/23/17 Unknown Rx 5-325 mg TAB] Ondansetron [Zofran Odt] 4 mg PO Q8H PRN #10 tab.rapdis 08/23/17 Unknown Rx ED Review of Systems ROS: Stated complaint: ABD./BACK PAIN Other details as noted in HPI Comment: All other systems reviewed and negative Constitutional: denies: chills, fever Eyes: denies: eye pain, eye discharge, vision change ENT: denies: ear pain, throat pain Respiratory: denies: cough, shortness of breath, wheezing Cardiovascular: denies: chest pain, palpitations Gastrointestinal: abdominal pain, nausea, vomiting Genitourinary: denies: urgency, dysuria, discharge Musculoskeletal: denies: back pain, joint swelling, arthralgia Skin: denies: rash, lesions Neurological: denies: headache, weakness, paresthesias Physical Exam - Physical Exam Vital Signs: Vital Signs 08/22/17 08/22/17 11:12 19:52 Temperature 98.9 F Pulse Rate 103 H 108 H Respiratory 20 16 Rate Blood Pressure 171/81 Blood Pressure 149/87 [Left] Blood Pressure 180/110 [Right] O2 Sat by Pulse 98 97 Oximetry Physical Exam: GENERAL: The patient is well-developed well-nourished. HENT: Normocephalic. Atraumatic. Patient has moist mucous membranes. EYES: Extraocular motions are intact. Pupils equal reactive to light bilaterally. NECK: Supple. Trachea is midline. CHEST/LUNGS: Clear to auscultation. There is no respiratory distress noted. HEART/CARDIOVASCULAR: Regular. There is no tachycardia. There is no murmur. ABDOMEN: Abdomen is soft. There is some tenderness palpation to the upper quadrants of the abdomen. No guarding rebound tenderness. Patient has normal bowel sounds. There is no abdominal distention. SKIN: Skin is warm and dry. NEURO: The patient is awake, alert, and oriented. The patient is cooperative. The patient has no focal neurologic deficits. The patient has normal speech. MUSCULOSKELETAL: There is no tenderness or deformity. There is no limitation range of motion. There is no evidence of acute injury. ED Course Vital Signs 08/22/17 08/22/17 11:12 19:52 Temperature 98.9 F Pulse Rate 103 H 108 H Respiratory 20 16 Rate Blood Pressure 171/81 Blood Pressure 149/87 [Left] Blood Pressure 180/110 [Right] O2 Sat by Pulse 98 97 Oximetry ED Medical Decision Making - Lab Data Result diagrams: 08/22/17 11:18 08/22/17 11:18 - Radiology Data Radiology results: report reviewed, image reviewed interpreted by me: Abdominal x-ray shows nonspecific nonobstructive bowel gas. EXAM: US ABDOMEN LIMITED HISTORY: upper abd pain, hx of chronic pancreatitis TECHNIQUE: Routine sonographic evaluation was obtained of the right upper quadrant. Correlation is made to the previous study of 10/19/2016. FINDINGS: The gallbladder is normal in size and wall thickness. Stones are not seen. Common bile duct measures 4 millimeters in diameter which is normal. The liver reveals increased echotexture secondary to hepatic steatosis versus cirrhosis. There are no focal hepatic lesions. Free fluid is not seen. The aorta is suboptimally seen for evaluation. The pancreas appears normal in size and is slightly heterogeneous echotexture. There are no focal pancreatic lesions otherwise. The right kidney reveals 3 benign cortical cysts measuring up to 1.9 cm in diameter. There no evidence of hydronephrosis. IMPRESSION: Heterogeneous echotexture of the pancreas without focal lesions. Findings may related to chronic pancreatitis/fatty infiltration. Heterogeneous echotexture liver secondary to hepatic steatosis/cirrhosis. Normal-appearing gallbladder and biliary tree. Benign cortical cysts in the right kidney. Transcribed By: RB Dictated By: LEAH STONE MD Electronically Authenticated By: LEAH STONE MD Signed Date/Time: 08/22/17 2100 - Medical Decision Making Patient presents with a few days of upper abdominal discomfort. She has a history of chronic pancreatitis. Labs today are mostly unremarkable. There is a mild leukocytosis of about 12,000. However belly labs are normal including lipase, LFTs and bilirubin. Her abdominal examination is rather benign. Mild tenderness to palpation but it is soft and certainly not toxic in appearance. Abdominal x-ray shows nonspecific nonobstructive bowel gas. An ultrasound was done of the upper regions that did not show any signs of acute pancreatitis. There is some fatty liver disease versus cirrhosis and this is consistent with patient's history of previous long-term alcohol abuse. Vital signs stable throughout her ED course including being afebrile. She was given a single Stapleton and upon reevaluation she says she is feeling improved. She says she has good follow-up with primary care and gastroenterology. She appears safe for discharge home at this time but has been encouraged to return to the emergency Department with any worsening of her symptoms or any acute distress. - Differential Diagnosis pancreatitis, cholelithiasis, hepatitis, gastritis Critical Care Time: No Critical care attestation.: If time is entered above; I have spent that time in minutes in the direct care of this critically ill patient, excluding procedure time. ED Disposition Clinical Impression: Hyperglycemia Abdominal pain Qualifiers: Abdominal location: upper abdomen, unspecified Qualified Code(s): R10.10 - Upper abdominal pain, unspecified Chronic pancreatitis Qualifiers: Pancreatitis type: alcohol induced Qualified Code(s): K86.0 - Alcohol-induced chronic pancreatitis Nausea & vomiting Qualifiers: Vomiting type: unspecified Vomiting Intractability: non-intractable Qualified Code(s): R11.2 - Nausea with vomiting, unspecified Hypertension Qualifiers: Hypertension type: essential hypertension Qualified Code(s): I10 - Essential ( primary) hypertension Disposition: TO HOME OR SELFCARE Is pt being admited?: No Condition: Stable Instructions: Acute Nausea and Vomiting (ED), Abdominal Pain (ED), Hypertension (ED) Additional Instructions: Please follow-up with your primary care physician and your ship construction teacher in the next few days. Please avoid any alcohol use. Try and avoid any fatty, greasy or spicy foods. Increase your oral rehydration. Try and stay away from foods that are high in salt and caffeinated products to help with your blood pressure. Keep a blood pressure log. Try and stay away from foods that are high in sugar, carbohydrates and starches to help with your blood sugar. Keep a blood sugar log. Return to the emergency Department with any worsening of your symptoms or any acute distress. You have been prescribed a medication that is sedating and therefore should not be taken prior to driving, working, and responsible for children and in no way should be mixed with alcohol of any quantity. Prescriptions: HYDROcodone/APAP 5-325 [Stapleton 5-325 mg TAB] 1 each PO Q6HR PRN #10 tablet PRN Reason: Pain Ondansetron [Zofran Odt] 4 mg PO Q8H PRN #10 tab.rapdis PRN Reason: Nausea Referrals: PRIMARY CARE, [Primary Care Provider] - [facility] Time of Disposition: 01:11
--- NOTE | 2017-08-23 00:13 | XRay Report ---
FINAL REPORT EXAM: XR ABDOMEN 2V HISTORY: Abd pain TECHNIQUE: Two supine views of the abdomen were submitted. Comparison is made to the study of 10/19/2016. FINDINGS: The bowel gas pattern is normal. There is a moderate amount retained feces in the colon. There are multiple calcifications along the floor of the pelvis. The lung bases are clear. The skeletal structures do not show any acute changes. IMPRESSION: No acute process identified.
--- NOTE | 2017-08-23 01:03 | Ultrasound Report ---
FINAL REPORT EXAM: US ABDOMEN LIMITED HISTORY: upper abd pain, hx of chronic pancreatitis TECHNIQUE: Routine sonographic evaluation was obtained of the right upper quadrant. Correlation is made to the previous study of 10/19/2016. FINDINGS: The gallbladder is normal in size and wall thickness. Stones are not seen. Common bile duct measures 4 millimeters in diameter which is normal. The liver reveals increased echotexture secondary to hepatic steatosis versus cirrhosis. There are no focal hepatic lesions. Free fluid is not seen. The aorta is suboptimally seen for evaluation. The pancreas appears normal in size and is slightly heterogeneous echotexture. There are no focal pancreatic lesions otherwise. The right kidney reveals 3 benign cortical cysts measuring up to 1.9 cm in diameter. There no evidence of hydronephrosis. IMPRESSION: Heterogeneous echotexture of the pancreas without focal lesions. Findings may related to chronic pancreatitis/fatty infiltration. Heterogeneous echotexture liver secondary to hepatic steatosis/cirrhosis. Normal-appearing gallbladder and biliary tree. Benign cortical cysts in the right kidney.
[2017-08-23 01:17] VITALS: BP 144/79
== END 2017-08-23 01:47 | disposition home or self-care (01) ==
LOC: ED 10:35
DX: K86.0 Alcohol-induced chronic pancreatitis (principal); R11.2 Nausea with vomiting, unspecified; R10.10 Upper abdominal pain, unspecified; I10 Essential (primary) hypertension; E11.65 Type 2 diabetes mellitus with hyperglycemia; F17.200 Nicotine dependence, unspecified, uncomplicated; Z90.710 Acquired absence of both cervix and uterus; K85.90 Acute pancreatitis without necrosis or infection, unspecified
CPT/HCPCS: 36415; 74019; 76705; 80053; 81001; 82150; 83690; 85007; 85025; 93005; 93010